=== PATIENT | female | born 1960 ===

== ENCOUNTER 2021-03-07 05:53 | Day surgery (SDC) | payer OTHER ==
[~2021-03-07 05:53] MED LIST: COZAAR25 MG PO
[2021-03-07] MEDS ORDERED: CEPHALEXIN750 MG PO (09:35)
== END 2021-03-07 15:30 | disposition home or self-care (01) ==
LOC: CIR.AMB 05:53
PROVIDERS: ATTEND Surgery
DX: I87.2 Venous insufficiency (chronic) (peripheral) (principal); Z20.822 Contact with and (suspected) exposure to COVID-19